=== PATIENT | male | born 1975 | race Caucasian/White ===

== ENCOUNTER 2025-07-01 10:27 | Day surgery (SDC) | payer OTHER ==
[~2025-07-01] VITALS: Ht 172.7 cm; Wt 76.0 kg
[~2025-07-01 10:27] MED LIST: ANAFRANIL50 MG PO; CEFAZOLIN SODIUM 2 GM VIAL IV SCH; CEFAZOLIN SODIUM 2 GM in SODIUM CHLORIDE 0.9% 100 ML IV SCH; CLOMIPHENE CITR50 MG PO; HYDROCODON-ACE1 EAC8 PO; IBLOOD GLUCOSE TEST STRIP 1 EA TEST VI PRN; LACTATED RINGER'S 1,000 ML IV SCH; LIDOCAINE HCL 1% 5 ML SDV INJ ONE; MELOXICAM15 MG PO; TESTONE CI200 MG/1 M IM; VALACYCLOVIR1000 MG PO; VITAMIN D31250 MCG PO; ZANAFLEX4 M1 PO
[2025-07-01 11:01] VITALS: BP 141/86
[2025-07-01] MEDS ORDERED: MULTIVITAMIN200 MCG PO (11:04)
[2025-07-01] MEDS ORDERED: LIDOCAINE HCL 2% 5 ML SDV ONE (12:32)
--- NOTE | 2025-07-01 13:08 | NUR ---
07/01/25 1308 Callie Quach 1302: PT ARRIVES TO PACU NON AROUSAL. HE IS REACTIVE. REPORT RECEVIED FROM PROJECT MANAGEMENT SPECIALIST AND SECURITY MESSENGER.
[2025-07-01 13:27] VITALS: BP 111/69
--- NOTE | 2025-07-02 08:08 | OR ---
[facility] [address] [place], [place] [address] Signed DATE OF OPERATION: 07/01/2025 SURGEON: Genie Parrish DO PREOPERATIVE DIAGNOSIS: Screening for colon cancer. POSTOPERATIVE DIAGNOSIS: Screening for colon cancer with diverticulosis. PROCEDURE PERFORMED: Colonoscopy. ANESTHESIA: IV sedation. ESTIMATED BLOOD LOSS: None. DRAINS: None. COMPLICATIONS: None. DESCRIPTION OF PROCEDURE: Patient was brought to the GI lab, placed in supine position. After induction of IV sedation, patient was placed in the left lateral position and padded to the satisfaction of anesthesia. Olympus video colonoscope was then introduced into the rectum and while under direct visualization and insufflation, the scope was then advanced in the rectum, to the sigmoid colon, descending colon, transverse colon, ascending colon into the cecum. The colon was then insufflated and exploration of mucosal surface was then carried out. The scope was withdrawn and the cecum and ascending colon were essentially unremarkable. No intrinsic or extrinsic masses were appreciated. Scope was brought back into the transverse colon. No intrinsic or extrinsic masses, no lesions or ulceration were noted. The scope was brought back into the descending colon. No extrinsic or intrinsic masses were noted. The scope was then brought back into the sigmoid colon. Some scattered diverticula were noted, but no evidence of diverticulitis noted. No bleeding was noted as well. Otherwise, the cecum was unremarkable. Scope was brought back into the rectosigmoid. Scattered diverticulum that were benign were Electronically Signed By: GENIE PARRISH DO 07/02/25 0808 PATIENT NAME: ELSIE VALENZUELA RECORD #: [id number] OPERATIVE REPORT DATE OF : 73 REPORT #: [id number] PHYSICIAN: GENIE PARRISH DO PCP: FLAKITA GIRON MD REPORT IS CONFIDENTIAL AND NOT TO BE RELEASED WITHOUT AUTHORIZATION [place] [id number] [place], [place] [address] Signed present. Otherwise, no masses intrinsic or extrinsic were appreciated. The scope was brought back into the rectum. The scope was withdrawn. The patient tolerated the procedure well and to recovery in satisfactory condition. ADDENDUM: The patient is eligible for 10 years of a screening colonoscopy at this time. DO DAKOTA Cloud/MODL /[id number] Copies: ~ Electronically Signed By: GENIE PARRISH DO 07/02/25 0808 PATIENT NAME: ELSIE VALENZUELA OPERATIVE REPORT DATE OF : 73 REPORT #: [id number] PHYSICIAN: GENIE PARRISH DO PCP: FLAKITA GIRON MD REPORT IS CONFIDENTIAL AND NOT TO BE RELEASED WITHOUT AUTHORIZATION
== END 2025-07-01 13:34 | disposition home or self-care (01) ==
LOC: DS 10:27
PROVIDERS: ATTEND Surgery
PROC: 0DJD8ZZ Inspection of Lower Intestinal Tract, Via Natural or Artificial Opening Endoscopic (ICD-10-PCS; principal; 2025-07-01 12:40)
DX: Z12.11 Encounter for screening for malignant neoplasm of colon (principal); K57.30 Diverticulosis of large intestine without perforation or abscess without bleeding
CPT/HCPCS: 00812; J0688; J2003; J2704; J7121